=== PATIENT | female | born 1940 | race Caucasian/White ===

== ENCOUNTER 2023-01-28 06:28 | Outpatient (CLI) | payer MEDICARE, BC, SELFPAY ==
[2023-01-28 07:05] VITALS: BP 167/84; PULSE 63; RESP 16; O2SAT 94
[2023-01-28 07:40] VITALS: BP 168/85; PULSE 16; RESP 60; O2SAT 97
--- NOTE | 2023-01-28 07:48 | PM.ORPRC ---
Procedure Note Date of procedure: 01/28/23 Procedure: PREOPERATIVE DIAGNOSIS: Left hip abductor tendinopathy/greater trochanteric bursitis POSTOPERATIVE DIAGNOSIS: Left hip abductor tendinopathy/greater trochanteric bursitis NAME OF OPERATION: Percutaneous tenotomy SURGEON: Hever Babb MD CHIROPRACTIC CARE: Rut Torres PA-C ANESTHESIA: Local ESTIMATED BLOOD LOSS: 2 mL. COMPLICATIONS: None. SPECIMENS: None. DRAINS: None. PREOPERATIVE ANTIBIOTICS: None INDICATIONS: The patient is a 82-year-old with a history of left hip pain secondary to the above diagnoses. Despite appropriate non operative management, they continue to have symptoms. Operative intervention was recommended. The risks, benefits and expected outcomes were discussed in detail. These included but were not limited to: Infection, bleeding, injury to blood vessel or nerve, venous thromboembolism. All questions were answered to their satisfaction. PROCEDURE: The patient was placed in the lateral decubitus position. The left hip was imaged in the long and short axes with the ultrasound transducer. Normal acoustic landmarks were identified. We then sterilely prepped and draped the skin, and used a sterile probe cover with sterile gel. Local anesthesia was established with 10 mL of a solution containing 2 % lidocaine without epinephrine, 0.5% Marcaine without epinephrine and sodium bicarbonate. An 11 blade was used to incise the skin. The Tenex TX 2 micro tip was used to treat the abductor tendon for a total of 4 minutes and 13 seconds. The incision was Steri-Stripped closed. A dry dressing was applied. Sponge and needle counts were correct x2. The patient tolerated the procedure well. There were no apparent complications. They were discharged to home in satisfactory condition. PLAN: The patient may weightbear as tolerates. Tylenol can be used for pain/discomfort. They may ramp up activity as the hip will allow. They will follow up in the office in 6 weeks to assess their progress.
== END 2023-01-28 07:45 | disposition home or self-care (01) ==
LOC: OR 06:30
PROVIDERS: PCP Internal Medicine; Visit Provider Orthopaedic Surgery
DX: M70.62 Trochanteric bursitis, left hip (principal)
CPT/HCPCS: 28060; 76942; J0665